=== PATIENT | female | born 1980 | race Hispanic/Latino ===

== ENCOUNTER 2018-03-21 09:59 | Outpatient (CLI) | payer OTHER ==
--- NOTE | 2018-03-21 10:56 | ULT ---
ULTRASOUND ABDOMEN LIMITED: (RIGHT UPPER QUADRANT) DATE: 03-21-18 HISTORY: 38-year-old female with elevated LFTs. FINDINGS: Gallbladder: Surgically absent. Common duct: 3 mm. Liver: Diffusely increased echogenicity. Mildly enlarged. Pancreas: Poorly visualized. Right kidney: No hydronephrosis. IMPRESSION: 1. Status post cholecystectomy. 2. Mild hepatomegaly and probable hepatic steatosis. JN R POS: TPC
== END 2018-03-21 10:00 | disposition home or self-care (01) ==
LOC: SCSULT 09:59
PROVIDERS: ATTEND Family Medicine
DX: R79.89 Other specified abnormal findings of blood chemistry (principal); R16.0 Hepatomegaly, not elsewhere classified; Z90.49 Acquired absence of other specified parts of digestive tract
CPT/HCPCS: 76705

== ENCOUNTER 2020-01-12 09:55 | Outpatient (CLI) | payer OTHER ==
--- NOTE | 2020-01-12 10:53 | RAD ---
PA AND LATERAL VIEWS CHEST: HISTORY: Chest pain. FINDINGS: The heart size is normal. The lungs are expanded without focal areas of consolidation, pneumothorace s, or pleural effusions. No acute osseous abnormalities are seen. IMPRESSION: No radiographic evidence of acute cardiopulmonary process. POS: AH
== END 2020-01-12 09:56 | disposition home or self-care (01) ==
LOC: SCSRAD 09:55
PROVIDERS: ATTEND Student in an Organized Health Care Education/Training Program
DX: R07.89 Other chest pain (principal)
CPT/HCPCS: 36415; 71046; 80053; 80061; 83735; 84270; 84403; 84439; 84443; 85025

== ENCOUNTER 2020-02-22 13:14 | Outpatient (CLI) | payer OTHER | END 2020-02-22 13:15 | disposition home or self-care (01) | LOC: DTY/OP 13:14 | PROVIDERS: ATTEND Student in an Organized Health Care Education/Training Program | DX: Z68.34 Body mass index [BMI] 34.0-34.9, adult (principal) | CPT/HCPCS: 97802 ==